=== PATIENT | female | born 1995 | race Caucasian/White ===

== ENCOUNTER 2019-01-08 10:45 | Emergency (ER) | payer MEDICAID, SELFPAY ==
[2019-01-08 10:46] VITALS: BP 149/80; PULSE 101; RESP 17; TEMP 36.7; O2SAT 100; BMI 27.9
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
--- NOTE | 2019-01-08 11:32 | ED.DEP ---
ED Disposition - Plan for ED Patient: Instructions: BURN, Second Degree Prescriptions: Prednisone [Deltasone] 20 mg PO BID #10 tab Prescription Printed Referrals: NOT,DEFINED [Primary Care Provider] - Og Holt MD [STAFF PHYSICIAN] - 3-5 Days
[2019-01-08] MEDS: predniSONE 20 MG Tablet 40 MG PO (11:35)
== END 2019-01-08 11:42 | disposition home or self-care (01) ==
LOC: ED 11:39
PROVIDERS: Emergency Provider Emergency Medicine
DX: L55.1 Sunburn of second degree (principal); E11.9 Type 2 diabetes mellitus without complications; Z72.0 Tobacco use
CPT/HCPCS: 99283; J7030

== ENCOUNTER → 2020-03-21 17:42 | Outpatient (CLI) | payer MEDICAID, SELFPAY | PROVIDERS: Referring Provider Nurse Practitioner Family; Visit Provider Nurse Practitioner Family | DX: Z03.818 Encounter for observation for suspected exposure to other biological agents ruled out (principal); B34.9 Viral infection, unspecified | CPT/HCPCS: 87635; 87804; C9803; U0003 ==

== ENCOUNTER 2020-03-28 16:26 | Emergency (ER) | payer MEDICAID, SELFPAY ==
[2020-03-28 16:27] VITALS: BP 145/81; PULSE 92; RESP 15; TEMP 36.3; O2SAT 98; BMI 31.5
[2020-03-28 17:36] LABS: Bacteria 0 SEEN /hpf (None Seen); Mucous, Urine 0 SEEN /hpf (<or=2+); Red Blood Cells-Urine 0 SEEN /hpf (0-5); White Blood Cells 0 SEEN /hpf (0-5)
[2020-03-28 17:40] LABS: Absolute Lymphocyte Count 2.46 X10^3/uL (0.83-4.51); Absolute Neutrophil Count 5.5 X10^3/uL (2.0-7.7); Basophil# 0.04 X10^3/uL; Basophil% 0.5 % (0-1); Eosinophil# 0.12 X10^3/uL; Eosinophils% 1.4 % (0-5); Hematocrit 45.4 % (37-47); Hemoglobin 15.7 g/dL (12.0-15.0); Lymphocyte # 2.46 X10^3/ul (4.0); Mean Corp Hgb Conc 34.6 g/dL (32-36); Mean Corpuscular Hgb 32.2 pg (27.0-32.0); Mean Corpuscular Volume 93.2 fL (81-99); Mean Platelet Vol. 11.4 fl (6.2-12.0); Monocyte# 0.57 X10^3/uL; Monocyte% 6.5 % (0-10); NRBC Flagged by Analyzer 0 % (0-5); Neutrophil # 5.53 X10^3/uL (2.7-7.7); Neutrophil % 62.9 % (47-70); Platelet Count 187 K/mm3 (150-450); RBC Distribution Width CV 11.8 % (11.6-14.6); RBC Distribution Width SD 39.9 fl (35.1-43.9); Red Blood Count 4.87 M/mm3 (4.2-5.4); White Blood Count 8.8 K/mm3 (4.4-11.0)
[2020-03-28 17:58] LABS: Anion Gap 5 (5-15); BUN 9 mg/dL (7-18); BUN/Creat Ratio 11.3 RATIO (10-20); Calcium,Total 10.2 mg/dL (8.5-10.1); Chloride 105 mmol/L (98-107); EST Glomerular Filtration Rate 95 mL/min (>60); Est Glom Filt Rate - Afr Amer 115 mL/min (>60); Estimated Creatinine Clearance 119.28 ml/min; Glucose 256 mg/dL (74-106); Potassium 3.8 mmol/L (3.5-5.1); Sodium Level 137 mmol/L (136-145)
[2020-03-28 18:01] LABS: Color, Urine Yellow (Yellow); Glucose, Dipstick 1000 mg/dl (Normal); Ketone-Dipstick 5 mg/dl (Negative); Leukocyte Esterase-Dipstick Negative /ul (Negative); Nitrite-Dipstick Negative (Negative); Occult Blood-Urine Negative /ul (Negative); Protein-Dipstick Negative (Negative); Specific Gravity, Urine 1.015 (1.002-1.030); Urine Bilirubin Dipstick Negative (Negative); Urine Clarity Clear (Clear); Urine Urobilinogen Normal (Normal)
--- NOTE | 2020-03-28 18:20 | ED.DCSUM_ITS ---
History of Present Illness Chief Complaint: Hyperglycemia Informant: Patient, Family Narrative: 24-year-old female states that around age 21 she was diagnosed with diabetes. She was placed on Metformin 1200 mg twice daily and a second unknown agent was later put in. She states she really did not like the way metformin made her feel and she eventually moved back to the [place] area. She does not have a family doctor and therefore has not taken any medications for over a year. She states her blood sugar was taken today it was over 300 so she called an urgent care and they told her to come to emergency. States that she wanted to schedule appointment but urgent care would not let her. Patient denies any fever or recent illnesses. She is a smoker. Past Medical History - Allergies and Home Meds Allergies/Adverse Reactions: Allergies No Known Allergies Allergy (Verified 03/28/20 16:29) Primary Care Physician: Jyotsna Pena MD [STAFF PHYSICIAN] - As soon as possible Prior records reviewed: Yes Past Medical History: None - DM2 Lives: With Family Smoking Status: Current every day smoker Drugs: None Review of Systems General: Denies: Chills, Fever, Sweats Eyes: Denies: Visual changes - bilaterally, Diplopia ENT: Denies: Rhinorrhea, Sore throat Cardiovascular: Denies: Chest pain, Palpitations Respiratory: Denies: Dyspnea, Cough, Dyspnea on exertion Gastrointestinal: Denies: Abdominal pain, Nausea, Vomiting, Diarrhea, Melena, Hematochezia Genitourinary: Reports: Frequency. Denies: Dysuria, Hematuria Musculoskeletal: Denies: Back pain, Extremity Pain Skin: Denies: Rash, Wounds Neurological: Denies: Headache, Weakness, Numbness Endocrine: Reports: Polyuria, Polydipsia Physical Exam Vital Signs/Narrative: Vital Signs Temp Pulse Resp BP Pulse Ox 03/28/20 16:27 97.3 F L 92 15 145/81 H 98 Inital Vital Signs reviewed: Yes General: Well nourished, Well developed, Obese, No Acute Distress Head: Normocephalic, Atraumatic Eyes: Perrl, EOMI ENT: Moist mucous membranes, No rhinorrhea Neck: Supple, Nontender Cardiovascular: Regular rate, Regular rhythm, No murmurs Respiratory: No distress, CTA bilaterally, Chest nontender Abdomen: Soft, Nontender, Nondistended, Normal bowel sounds Back: Nontender, Normal Inspection Extremities: Nontender, No edema Skin: Normal color, No rash Neurological: Alert, Oriented x3, Cranial nerves II-XII grossly intact, Normal Strength, Normal Sensation Psychological: Normal affect, Normal Mood Diagnostic/Tx/Re-eval Laboratory Last Values WBC 8.8 K/mm3 (4.4-11.0) 03/28/20 17:30 RBC 4.87 M/mm3 (4.2-5.4) 03/28/20 17:30 Hgb 15.7 g/dL (12.0-15.0) H 03/28/20 17:30 Hct 45.4 % (37-47) 03/28/20 17:30 MCV 93.2 fL (81-99) 03/28/20 17: MCH 32.2 pg (27.0-32.0) H 03/28/20 17:30 MCHC 34.6 g/dL (32-36) 03/28/20 17:30 RDW Std Deviation 39.9 fl (35.1-43.9) 03/28/20: RDW Coeff of Ellis 11.8 % (11.6-14.6) 03/28/20: Plt Count 187 K/mm3 (150-450) 03/28/20: MPV 11.4 fl (6.2-12.0) 03/28/20: Immature Gran % (Auto) 0.700 % (0.0-0.9) 03/28/20 17: Neut % (Auto) 62.9 % (47-70) 03/28/20: Lymph % (Auto) 28.0 % (19-41) 03/28/20 17: [place] % (Auto) 6.5 % (0-10) 03/28/20 17:30 Eos % (Auto) 1.4 % (0-5) 03/28/20: Baso % (Auto) 0.5 % (0-1) 03/28/20 17:30 Absolute Neuts (auto) 5.5 X10^3/uL (2.0-7.7) 03/28/20 17:30 Absolute Lymphs (auto) 2.46 X10^3/uL (0.83-4.51) 03/28/20 17:30 Nucleated RBC % 0 % (0-5) 03/28/20 17:30 Sodium 137 mmol/L (136-145) 03/28/20 17:30 Potassium 3.8 mmol/L (3.5-5.1) 03/28/20 17:30 Chloride 105 mmol/L (98-107) 03/28/20 17:30 Carbon Dioxide 27.0 mmol/L (21.0-32.0) 03/28/20 17:30 Anion Gap 5 (5-15) 03/28/20 17:30 BUN 9 mg/dL (7-18) 03/28/20 17:30 Creatinine 0.80 mg/dL (0.55-1.02) 03/28/20 17:30 Estim Creat Clear Calc 119.28 ml/min 03/28/20 17:30 Est GFR (MDRD) Af Amer 115 mL/min (>60) 03/28/20 17:30 Est GFR (MDRD) Non-Af 95 mL/min (>60) 03/28/20 17:30 BUN/Creatinine Ratio 11.3 RATIO (-20) 03/28/20 17:30 Glucose 256 mg/dL (74-106) H 03/28/20 17:30 Calcium 10.2 mg/dL (8.5-10.1) H 03/28/20 17:30 Urine Color Yellow (Yellow) 03/28/20 17:30 Urine Clarity Clear (Clear) 03/28/20 17:30 Urine pH 6.0 (5.0 - 8.0) 03/28/20 17:30 Ur Specific [place] 1.015 (1.002-1.030) 03/28/20 17:30 Urine Protein Negative mg/dl (Negative) 03/28/20 17:30 Urine Glucose (UA) 1000 mg/dl (Normal) H 03/28/20 17:30 Urine Ketones 5 mg/dl (Negative) H 03/28/20 17:30 Urine Occult Blood Negative /ul (Negative) 03/28/20 17:30 Urine Nitrite Negative (Negative) 03/28/20 17:30 Urine Bilirubin Negative mg/dL (Negative) 03/28/20 17:30 Urine Urobilinogen Normal mg/dl (Normal) 03/28/20 17:30 Ur Leukocyte Esterase Negative /ul (Negative) 03/28/20 17:30 Urine RBC 0 SEEN /hpf (0-5) 03/28/20 17:30 Urine WBC 0 SEEN /hpf (0-5) 03/28/20 17:30 Ur Squamous Epith Cells 0-5 SEEN /hpf (5-10) 03/28/20 17:30 Urine Bacteria 0 SEEN /hpf (None Seen) 03/28/20 17:30 Urine Mucus 0 SEEN /hpf (<or=2+) 03/28/20 17:30 Urine Test Negative Negative 03/28/20 17:20 - Medical Decision Making Patient was advised that the choices she is making now will affect her quality of life and medical needs in the future. Stressed that she needs to quit smoking and establish primary care get her blood sugars under control. We will start her back on Metformin but at a lower dose at 500 twice a day until she can get in. ED Disposition - Plan for ED Patient: Disposition: Home or Assisted Living Diagnosis: Hyperglycemia Instructions: ED Diabetic Hyperglycemia Prescriptions: Metformin HCl [Glucophage] 500 mg PO BID #60 tab Prescription Printed Referrals: Jyotsna Pena MD [STAFF PHYSICIAN] - As soon as possible
[2020-03-28 18:26] VITALS: RESP 17
[2020-03-28 19:09] LABS: Internal QC Validated? YES +Cl - CLEAR BKGD; Pregnancy, Urine Negative Negative
[2020-03-28 19:13] LABS: Squamous Epithelial Cells - UA 0-5 SEEN /hpf (5-10)
[2020-03-28 19:34] VITALS: O2SAT 99
== END 2020-03-28 19:34 | disposition home or self-care (01) ==
LOC: ED 18:43
PROVIDERS: Emergency Provider Emergency Medicine
DX: E11.65 Type 2 diabetes mellitus with hyperglycemia (principal); E66.9 Obesity, unspecified; F17.200 Nicotine dependence, unspecified, uncomplicated; Z79.84 Long term (current) use of oral hypoglycemic drugs; Z79.899 Other long term (current) drug therapy
CPT/HCPCS: 80048; 81001; 81025; 85025; 99283; A4216

== ENCOUNTER → 2020-05-06 15:36 | Outpatient (CLI) | payer MEDICAID, SELFPAY ==
[2020-05-06 17:18] LABS: Cholesterol 213 mg/dL (200); High Density Lipoprotein 31 mg/dL; Triglycerides 367 mg/dL; Very Low Density Lipoprotein 73 mg/dL (5-40)
[2020-05-06 17:26] LABS: Hemoglobin A1c 7.6 % (3.8-5.6)
[2020-05-06 17:40] LABS: Microalbumin,Random Urine 8.2 mg/L (NO RANGE EST.)
== END ==
PROVIDERS: Visit Provider Internal Medicine
DX: E11.9 Type 2 diabetes mellitus without complications (principal)
CPT/HCPCS: 36415; 80061; 82043; 83036

== ENCOUNTER 2021-04-03 06:36 | Emergency (ER) | payer MEDICAID, SELFPAY ==
[2021-04-03 06:38] VITALS: BP 116/67; PULSE 86; RESP 19; TEMP 36.1; O2SAT 99; BMI 30.8
--- NOTE | 2021-04-03 06:59 | EDS_ITS ---
HPI History of Present Illness Chief Complaint: Nausea/Vomiting/Diarrhea Informant: patient Narrative Narrative: 25-year-old female history of diabetes presents the emergency room with 3 days of vomiting and diarrhea. Patient describes the diarrhea as watery and brown. No bad food exposure, She denies any blood in the emesis or the stool. recent antibiotics, in her sister who was recently d fever shortness of breath rhinorrhea or sore throat.iagnosed with Covid. Patient denies any cough but she does note a sick contact Patient left work tonight due to her symptoms. [facility] Medical History Asthma Bipolar disorder Diabetes HTN (hypertension) Home Medications aripiprazole 10 mg PO DAILY 03/28/20 [History Last Taken 03/28/20] venlafaxine 75 mg PO BID 03/28/20 [History Last Taken 03/28/20] benztropine 1 mg tablet 1 mg PO DAILY 05/09/20 [History Last Taken Unknown] empagliflozin 25 mg tablet 25 mg PO QAM #90 tab 12/17/20 [Rx Last Taken Unknown] lisinopril 2.5 mg tablet 2.5 mg PO DAILY #90 tab 12/17/20 [Rx Last Taken Unknown] metformin 500 mg tablet,extended release 24hr 500 mg PO BID #180 tab 03/24/21 [Rx Last Taken Unknown] ondansetron 4 mg PO Q8H PRN PRN #10 tab 04/03/21 [Rx Last Taken Unknown] Allergy/AdvReac Type Severity Reaction Status Date / Time No Known Allergies Allergy Verified 04/03/21 06:36 Family History Mother Anxiety Depression Hypertension Father Asthma Diabetes Hyperlipidemia Mental disorder Social History Smoking Status: Current every day smoker tobacco type: e-cigarettes Tobacco: How many years used: 5 alcohol intake: never substance use type: does not use what type of physical activity do you participate in: none ROS ROS ED Constitutional Constitutional ED: Denies chills, fever(s) or weight loss Eyes Eyes: Denies change in vision or diplopia ENT ENT ED: Denies ear pain, rhinorrhea or sore throat Cardiovascular Cardiovascular: Denies chest pain, orthopnea, palpitations or racing heartbeat Respiratory/Chest Respiratory/Chest: Denies cough, dyspnea or orthopnea Gastrointestinal Gastrointestinal: Reports diarrhea, nausea and vomiting; Denies abdominal pain Genitourinary Genitourinary ED: Denies dysuria, hematuria or urinary frequency Musculoskeletal Musculoskeletal: Denies arthralgias or myalgias Integumentary Denies abscess or rash Neurologic Neurologic: Denies headache(s) or weakness Psychiatric Psychiatric: Denies anxiety, depression, suicidal ideation or suicidal thoughts Endocrine Endocrinology: Denies polydipsia, polyphagia or polyuria Allergic/Immunologic Allergic/Immunologic ED: Denies mouth swelling, tongue swelling or urticaria EXAM Physical Exam Const Vital Signs: 04/03/21 06:38 Temperature 97 F L Temperature Source Temporal Pulse Rate 86 Respiratory Rate 19 H Blood Pressure 116/67 Blood Pressure Mean 83 Pulse Ox 99 Positive well nourished and well developed General Appearance ED: well developed HEENT Reports normocephalic, head/scalp atraumatic, TM's clear and moist mucous membranes Negative for trauma Tympanic Membrane ED: Yes TM's clear Eyes PERRL and EOMs intact bilaterally Neck no lymphadenopathy, supple and no JVD Resp normal respiratory effort and clear to auscultation bilaterally Cardio regular rate, regular rhythm and no murmurs GI normal to inspection, nondistended, normoactive bowel sounds and non-tender Palpation: soft Back/Spine no CVA tenderness and normal ROM Extremity normal to inspection General Extremety ED: Negative for edema General Extremity: Negative for edema Neuro oriented x3 and CN's II-XII intact bilaterally Sensorium / Orientation: alert Motor Exam: strength 5/5 throughout Psych mental status grossly normal Mood & Affect: Negative for depressed or tearful Skin no rashes or lesions noted and no wounds MDM MDM MDM Narrative Medical decision making narrative: Patient's blood counts show a white count of 9.9 platelet count 178 hemoglobin 15.3. Urinalysis shows 15 ketones no obvious infection negative test. CMP showed glucose 162 normal lipase. Patient received a liter of IV fluids and Zofran. She will be discharged home with a prescription for Zofran as well as instructions for Imodium return if worsening or concerns Lab Data Attestation: I reviewed the patient's lab results. Labs: Laboratory Results - last 24 hr 10/04/03/21 04/03/21 07:00 07:03 07:05 WBC 9.9 RBC 4.81 Hgb 15.3 H Hct 45.3 MCV 94.2 MCH 31.8 MCHC 33.8 RDW Std Deviation 41.1 RDW Coeff of Ellis 11.9 Plt Count 178 MPV 11.1 Immature Gran % (Auto) 0.200 Neut % (Auto) 73.5 H Lymph % (Auto) 19.3 [place] % (Auto) 5.7 Eos % (Auto) 0.9 Baso % (Auto) 0.4 Absolute Neuts (auto) 7.3 Absolute Lymphs (auto) 1.90 Nucleated RBC % 0 Sodium Potassium Chloride Carbon Dioxide Anion Gap BUN Creatinine Estim Creat Clear Calc Est GFR (MDRD) Af Amer Est GFR (MDRD) Non-Af BUN/Creatinine Ratio Glucose Calcium Total Bilirubin AST ALT Alkaline Phosphatase Total Protein Albumin Globulin Albumin/Globulin Ratio Lipase Urine Color Yellow Urine Clarity Clear Urine pH 5.0 Ur Specific [place] 1.020 Urine Protein Negative Urine Glucose (UA) 1000 H Urine Ketones 15 H Urine Occult Blood Negative Urine Nitrite Negative Urine Bilirubin Negative Urine Urobilinogen Normal Ur Leukocyte Esterase Negative Urine RBC 0 SEEN Urine WBC 0 SEEN Ur Squamous Epith Cells 0-5 SEEN Urine Bacteria 0 SEEN Urine Mucus 0 SEEN Urine Test Negative POC Glucose 184 H 04/03/21 07:05 WBC RBC Hgb Hct MCV MCH MCHC RDW Std Deviation RDW Coeff of Ellis Plt Count MPV Immature Gran % (Auto) Neut % (Auto) Lymph % (Auto) [place] % (Auto) Eos % (Auto) Baso % (Auto) Absolute Neuts (auto) Absolute Lymphs (auto) Nucleated RBC % Sodium 139 Potassium 3.7 Chloride 105 Carbon Dioxide 26.0 Anion Gap 8 BUN 12 Creatinine 0.68 Estim Creat Clear Calc 139.14 Est GFR (MDRD) Af Amer 136 Est GFR (MDRD) Non-Af 112 BUN/Creatinine Ratio 17.5 Glucose 162 H Calcium 9.0 Total Bilirubin 0.50 AST 13 L ALT 31 Alkaline Phosphatase 58 Total Protein 7.9 Albumin 4.3 Globulin 3.6 Albumin/Globulin Ratio 1.2 Lipase 79 Urine Color Urine Clarity Urine pH Ur Specific [place] Urine Protein Urine Glucose (UA) Urine Ketones Urine Occult Blood Urine Nitrite Urine Bilirubin Urine Urobilinogen Ur Leukocyte Esterase Urine RBC Urine WBC Ur Squamous Epith Cells Urine Bacteria Urine Mucus Urine Test POC Glucose Discharge Plan Triage Chief Complaint: Nausea/Vomiting/Diarrhea ED Provider: Cody Cota Dx/Rx/DC Orders Clinical Impression: Gastroenteritis Instructions: ED Gastroenteritis, Viral (Adult) Prescriptions: New ondansetron [ondansetron] 4 MG tablet 4 mg PO Q8H PRN PRN (Reason: Nausea) Qty: 10 RF: 0 No Action benztropine 1 mg tablet 1 mg PO DAILY RF: 0 Jardiance 25 mg tablet 25 mg PO QAM Qty: 90 RF: 2 lisinopril 2.5 mg tablet 2.5 mg PO DAILY Qty: 90 RF: 1 metformin 500 mg tablet extended release 24hr 500 mg PO BID Qty: 180 RF: 1 venlafaxine 75 MG capsule,extended release 24hr 75 mg PO BID RF: 0 aripiprazole 10 MG tablet 10 mg PO DAILY RF: 0 Primary Care Provider: Jerrod Hewitt NP Referrals: Jerrod Hewitt NP, DRIVER [employer] [address] [Primary Care Provider] - As Needed Disposition Disposition: Home, Self Care
[2021-04-03] MEDS: Ondansetron 4 MG/2 ML Vial IV (07:10)
[2021-04-03] MEDS: 0.9% Normal Saline 1,000 ML 1000 ML IV (07:10)
[2021-04-03 07:11] LABS: Bedside Glucose 184 mg/dL (70-110)
[2021-04-03 07:11] LABS: Bacteria 0 SEEN /hpf (None Seen); Mucous, Urine 0 SEEN /hpf (<or=2+); Red Blood Cells-Urine 0 SEEN /hpf (0-5); White Blood Cells 0 SEEN /hpf (0-5)
[2021-04-03 07:14] LABS: Color, Urine Yellow (Yellow); Glucose, Dipstick 1000 mg/dl (Normal); Ketone-Dipstick 15 mg/dl (Negative); Leukocyte Esterase-Dipstick Negative /ul (Negative); Nitrite-Dipstick Negative (Negative); Occult Blood-Urine Negative /ul (Negative); Protein-Dipstick Negative (Negative); Urine Bilirubin Dipstick Negative (Negative); Urine Clarity Clear (Clear); Urine Urobilinogen Normal (Normal)
[2021-04-03 07:22] LABS: Absolute Neutrophil Count 7.3 X10^3/uL (2.0-7.7); Basophil# 0.04 X10^3/uL; Basophil% 0.4 % (0-1); Eosinophil# 0.09 X10^3/uL; Eosinophils% 0.9 % (0-5); Hematocrit 45.3 % (37-47); Hemoglobin 15.3 g/dL (12.0-15.0); Lymphocyte % 19.3 % (19-41); Mean Corp Hgb Conc 33.8 g/dL (32-36); Mean Corpuscular Hgb 31.8 pg (27.0-32.0); Mean Corpuscular Volume 94.2 fL (81-99); Mean Platelet Vol. 11.1 fl (6.2-12.0); Monocyte# 0.56 X10^3/uL; Monocyte% 5.7 % (0-10); NRBC Flagged by Analyzer 0 % (0-5); Neutrophil # 7.25 X10^3/uL (2.7-7.7); Neutrophil % 73.5 % (47-70); Platelet Count 178 K/mm3 (150-450); RBC Distribution Width CV 11.9 % (11.6-14.6); RBC Distribution Width SD 41.1 fl (35.1-43.9); Red Blood Count 4.81 M/mm3 (4.2-5.4); White Blood Count 9.9 K/mm3 (4.4-11.0)
[2021-04-03 07:28] LABS: Internal QC Validated? YES +Cl - CLEAR BKGD; Pregnancy, Urine Negative Negative; Squamous Epithelial Cells - UA 0-5 SEEN /hpf (5-10)
[2021-04-03 07:39] LABS: ALB/GLOB Ratio 1.2 RATIO (0.9-2.4); AST(SGOT) 13 U/L (15-37); Alanine Aminotransfer ALT/SGPT 31 U/L (13-56); Albumin, Serum 4.3 g/dL (3.2-5.0); Alkaline Phosphatase 58 U/L (45-117); Anion Gap 8 (5-15); BUN 12 mg/dL (7-18); BUN/Creat Ratio 17.5 RATIO (10-20); Chloride 105 mmol/L (98-107); Creatinine, Serum 0.68 mg/dL (0.55-1.02); EST Glomerular Filtration Rate 112 mL/min (>60); Est Glom Filt Rate - Afr Amer 136 mL/min (>60); Estimated Creatinine Clearance 139.14 ml/min; Globulin 3.6 g/dL (2.2-4.2); Glucose 162 mg/dL (74-106); Lipase 79 U/L (73-393); Potassium 3.7 mmol/L (3.5-5.1); Protein, Total 7.9 g/dL (6.4-8.2); Sodium Level 139 mmol/L (136-145)
[2021-04-03 08:42] VITALS: BP 114/75; PULSE 62; RESP 15; O2SAT 98
== END 2021-04-03 08:43 | disposition home or self-care (01) ==
PROVIDERS: Emergency Provider Emergency Medicine; PCP Nurse Practitioner Family
DX: K52.9 Noninfective gastroenteritis and colitis, unspecified (principal); Z20.822 Contact with and (suspected) exposure to COVID-19; E11.9 Type 2 diabetes mellitus without complications; I10 Essential (primary) hypertension; J45.909 Unspecified asthma, uncomplicated; F31.9 Bipolar disorder, unspecified; F17.290 Nicotine dependence, other tobacco product, uncomplicated; Z79.84 Long term (current) use of oral hypoglycemic drugs; Z79.899 Other long term (current) drug therapy
CPT/HCPCS: 80053; 81001; 81025; 82962; 83690; 85025; 87426; 96361; 96374; 99283; J7030; A4216; J2405